=== PATIENT | female | born 1985 | race Hispanic/Latino ===

== ENCOUNTER 2018-06-27 09:08 | Day surgery (SDC) | payer BC ==
[2018-06-22 09:47] VITALS: BMI 23.3
[2018-06-27] MEDS ORDERED: Propofol 10 mg/ml Inj (20 ML) ONE (10:12)
[2018-06-27] MEDS ORDERED: Dexamethasone 4 mg/1 ml ONE (10:12)
[2018-06-27] MEDS ORDERED: Lidocaine 2% Jelly (5 ml) TOP ONE (10:12)
[2018-06-27] MEDS ORDERED: Lidocaine 1% 5ml Abboject IV ONE (10:12)
[2018-06-27] MEDS ORDERED: Midazolam 2 MG/2 ML VIAL ONE (10:12)
[2018-06-27] MEDS ORDERED: Chlorhexidine Gluconate 2OZ GEL TP ONE (10:56)
[2018-06-27] MEDS ORDERED: Silver Nitrate Topical - Stick ONE (10:56)
[2018-06-27] MEDS ORDERED: Lactated Ringer's 1,000 ML IV ONE (11:43)
--- NOTE | 2018-06-27 11:45 | CP.PCM.HP ---
History of Present Illness - History of Present Illness History of Present Illness: 32yo female with h/o irregular bleeding. FOund to have endometrial polyp on ultrasound and SIS. Discussed options with patient and recommended hysteroscopy , polypectomy. Discussed the R/B/A of procedure with patient and all patient questions answered. Pt consented for procedure Present on Admission - Present on Admission Any Indicators Present on Admission: No History of DVT/PE: No History of Uncontrolled Diabetes: No Urinary Catheter: No Decubitus Ulcer Present: No Past Patient History - Past Medical History & Family History Past Medical History?: No - Past Social History Smoking Status: Never Smoked - CARDIAC Hx Cardiac Disorders: No - PULMONARY Hx Respiratory Disorders: No - NEUROLOGICAL Hx Neurological Disorder: No - HEENT Hx HEENT Problems: No - RENAL Hx Chronic Kidney Disease: No - ENDOCRINE/METABOLIC Hx Endocrine Disorders: No - HEMATOLOGICAL/ONCOLOGICAL Hx Blood Disorders: No - INTEGUMENTARY Hx Dermatological Problems: No - MUSCULOSKELETAL/RHEUMATOLOGICAL Hx Musculoskeletal Disorders: No - GASTROINTESTINAL Hx Gastrointestinal Disorders: No - GENITOURINARY/GYNECOLOGICAL Hx Genitourinary Disorders: No - PSYCHIATRIC Hx Emotional Abuse: No Hx Physical Abuse: No - SURGICAL HISTORY Hx Surgeries: Yes Hx Herniorrhaphy: Yes (left inguinal) - ANESTHESIA Hx Anesthesia: Yes Hx Anesthesia Reactions: No Hx Malignant Hyperthermia: No Has any member of the family had a problem w/ anesthesia?: No Meds Allergies/Adverse Reactions: Allergies Allergy/AdvReac Type Severity Reaction Status Date / Time Sulfa (Sulfonamide Allergy unknown Verified 06/27/18 09:40 Antibiotics) Physical Exam - Constitutional Appears: Well, No Acute Distress - Head Exam Head Exam: NORMAL INSPECTION, NORMOCEPHALIC - Eye Exam Eye Exam: Normal appearance, PERRL - ENT Exam ENT Exam: Mucous Membranes Moist - GI/Abdominal Exam GI & Abdominal Exam: Soft. absent: Distended, Tenderness - Extremities Exam Extremities exam: Positive for: normal inspection. Negative for: calf tenderness Results - Vital Signs Recent Vital Signs: Last Vital Signs Temp 98 F 06/27/18 10:01 Pulse 74 06/27/18 10:07 Resp 18 06/27/18 10:01 BP 117/64 06/27/18 10:01 Pulse Ox 100 06/27/18 10:01 - Imaging and Cardiology US - abdomen Status: Report reviewed by me Assessment & Plan - Assessment and Plan (Free Text) Assessment: Endometrial polyp. H/O irregular bleeding. Plan: Hysteroscopy, D&C, Polypectomy - Date & Time Date: 06/27/18 Time: 11:46
--- NOTE | 2018-06-27 12:23 | PCM.SURG1 ---
Surgeon's Initial Post Op Note - Surgeon's Notes Surgeon: Kay Executive Candidate Developer: N/A Type of Anesthesia: General LMA Anesthesia Administered By: Chris Pre-Operative Diagnosis: Endometrial Polyp, Irregular bleeding Operative Findings: Submucosal fibroid ~3cm, otherwise normal pelvic anatomy Post-Operative Diagnosis: Submucosal fibroid Operation Performed: Hysteroscopy, hysteroscopic myomectomy Specimen/Specimens Removed: uterine fibroid Estimated Blood Loss: EBL {In ML}: 50 Blood Products Given: N/A Drains Used: No Drains Post-Op Condition: Good Date of Surgery/Procedure: 06/27/18 Time of Surgery/Procedure: 12:24
[2018-06-27] MEDS ORDERED: Oxycodone/Acetaminophen 5/325 mg Tab PO PRN (12:25)
--- NOTE | 2018-06-27 12:25 | CP.PCM.DIS ---
Provider - Provider Date of Admission: 06/27/2018 Attending physician: Martínez Villanueva MD Primary care physician: Martínez Villanueva MD Time Spent in preparation of Discharge (in minutes): 10 Diagnosis - Discharge Diagnosis (1) Fibroids, submucosal Status: Acute (2) Irregular bleeding Status: Acute Hospital Course - Date & Time of H&P Date of H&P: 06/27/18 Time of H&P: 12:00 Discharge Exam - Head Exam Head Exam: NORMAL INSPECTION, NORMOCEPHALIC Discharge Plan - Follow Up Plan Condition: GOOD Disposition: HOME/ ROUTINE Referrals: Martínez Villanueva MD [Primary Care Provider] -
[2018-06-27] MEDS ORDERED: Sodium Chloride 0.9% 1,000 ML IV SCH (12:30)
[2018-06-27] MEDS ORDERED: Lactated Ringer's 1,000 ML IV SCH (12:30)
[2018-06-27 13:27] VITALS: RESP 18; O2SAT 99
[2018-06-27 14:16] VITALS: BP 111/67; PULSE 81; TEMP 98.4
--- NOTE | 2018-07-14 06:30 | OP ---
PROCEDURE DATE: 06/27/2018 PREOPERATIVE DIAGNOSES: Endometrial polyp, irregular bleeding. POSTOPERATIVE DIAGNOSIS: Submucosal fibroid, approximately 3 cm. OPERATION PERFORMED: Hysteroscopy, hysteroscopic myomectomy. OPERATIVE FINDINGS: Submucosal fibroid approximately 3 cm, otherwise normal-appearing pelvic anatomy. ESTIMATED BLOOD LOSS: 50 mL. FLUIDS: 800 mL of lactated Ringer's. URINE OUTPUT: 100 mL of clear urine. COMPLICATIONS: None. SURGEON: Martínez Villanueva MD BALE COVERER: None. ANESTHESIOLOGIST: Martínez Doty MD ANESTHESIA: General LMA. DESCRIPTION OF PROCEDURE: The patient was taken to the operating room where general anesthesia was found to be adequate. The patient was prepped and draped in a normal sterile fashion in the dorsal lithotomy position. A weighted speculum was placed at the posterior aspect of the vagina. A Hussein retractor was placed at the anterior surface of the vagina. The cervix was grasped with a single-tooth tenaculum at the anterior surface. The cervix was dilated with Calderón dilators to a size of 20-Czech. The hysteroscope was placed through the cervix into the uterine cavity. The uterine cavity was visualized, and the above findings noted. The MyoSure device was placed through the hysteroscope into the uterine cavity. Under direct visualization, the MyoSure device was activated, and the submucosal fibroid was removed sharply under direct visualization. After removal of the fibroid, the surgical site was found to be hemostatic. The MyoSure device was removed from the hysteroscope. The hysteroscope was removed from the uterus. The tenaculum was removed from the cervix. Both the tenaculum site and cervical os were found to be hemostatic. The patient tolerated the procedure well. All sponge count, lap count, and needle counts were correct x2. There were no complications. The patient was taken to the recovery room in awake and stable condition. Martínez Villanueva MD
== END 2018-06-27 15:00 | disposition home or self-care (01) ==
LOC: H.OPSURG 09:08
PROVIDERS: ATTEND Obstetrics & Gynecology
DX: N92.6 Irregular menstruation, unspecified (principal); F32.9 Major depressive disorder, single episode, unspecified; N84.0 Polyp of corpus uteri; D25.0 Submucous leiomyoma of uterus
CPT/HCPCS: 58561; 88305; J1100; J1885; J2210; J2250; J2704; J3010; J7030; J7120